=== PATIENT | male | born 1970 | race Caucasian/White ===

== ENCOUNTER 2019-02-08 11:20 | Emergency (ER) | payer OTHER ==
--- NOTE | 2019-02-08 11:37 | ER Document Report ---
ED Medical Screen (RME) - General Chief Complaint: Testicular Pain Stated Complaint: TESTICULAR PAIN Time Seen by Provider: 02/08/19 11:35 Mode of Arrival: Ambulatory Information source: Patient Notes: Patient presents complaining of right testicular pain that radiates to right groin and right lower back area. Patient states pain started 2 days ago and woke him up at night. Patient saw his primary doctor who advised him to come here with concerns about possible torsion versus hernia, versus kidney stone. Patient denies any urinary symptoms vomiting or fever. I have greeted and performed a rapid initial assessment of this patient. A comprehensive ED assessment and evaluation of the patient, analysis of test results and completion of the medical decision making process will be conducted by additional ED providers. - Related Data Allergies/Adverse Reactions: No Known Allergies Allergy (Verified 02/08/19 11:21) Physical Exam - Vital signs Vitals: Temp Pulse Resp BP Pulse Ox 98.8 F 91 15 134/92 H 99 02/08/19 11:26 02/08/19 11:26 02/08/19 11:02/08/19 11:02/08/19 11:26 - Genitourinary Tenderness: Testicle tender - Right testicular tenderness Scrotum: Redness Notes: GILL Cagle as standby Course - Vital Signs Vital signs: Temp Pulse Resp BP Pulse Ox 98.8 F 91 15 134/92 H 99 02/08/19 11:26 02/08/19 11:26 02/08/19 11:26 02/08/19 11:26 02/08/19 11:26
[2019-02-08 12:05] LABS: ABSOLUTE LYMPHOCYTES (AUTO) 1.9 10^3/uL (0.5-4.7); ABSOLUTE MONOCYTES (AUTO) 0.9 10^3/uL (0.1-1.4); ABSOLUTE NEUT (AUTO) 7.6 10^3/uL (1.7-8.2); BASOPHILS % (AUTO) 0.3 % (0-2); EOSINOPHILS % (AUTO) 0.1 % (0-6); HEMATOCRIT 40.9 % (37.9-51.0); HEMOGLOBIN 13.9 g/dL (13.5-17.0); LYMPHOCYTES % (AUTO) 18.3 % (13-45); MEAN CORPUSCULAR HEMOGLOBIN 32.2 pg (27.0-33.4); MEAN CORPUSCULAR VOLUME 95 fl (80-97); MONOCYTES % (AUTO) 8.4 % (3-13); PLATELET COUNT 190 10^3/uL (150-450); RED BLOOD COUNT 4.32 10^6/uL (4.35-5.55); RED CELL DISTRIBUTION WIDTH 14.1 % (11.5-14.0); SEGMENTED NEUTROPHILS % (AUTO) 72.9 % (42-78); TOTAL CELLS COUNTED % (AUTO) 100 %; WHITE BLOOD COUNT 10.4 10^3/uL (4.0-10.5)
[2019-02-08 12:07] LABS: APPEARANCE,URINE CLEAR; BILIRUBIN,URINE NEGATIVE (NEGATIVE); COLOR,URINE YELLOW; GLUCOSE, URINE NEGATIVE (NEGATIVE); KETONES,URINE TRACE mg/dL (NEGATIVE); LEUKOCYTE ESTERASE,URINE NEGATIVE (NEGATIVE); NITRITE,URINE NEGATIVE (NEGATIVE); PROTEIN,URINE NEGATIVE (NEGATIVE); URINE SPECIFIC GRAVITY 1.003; UROBILINOGEN,URINE NEGATIVE mg/dL (<2.0)
[2019-02-08 12:20] LABS: ALANINE AMINOTRANSFERASE 31 U/L (21-72); ALBUMIN 4.7 g/dL (3.5-5.0); ALKALINE PHOSPHATASE 39 U/L (38-126); ANION GAP 13 (5-19); ASPARTATE AMINO TRANSFERASE 29 U/L (17-59); BILIRUBIN,DIRECT 0.3 mg/dL (0.0-0.4); BILIRUBIN,TOTAL 1.4 mg/dL (0.2-1.3); BLOOD UREA NITROGEN 4 mg/dL (7-20); CALCIUM 9.9 mg/dL (8.4-10.2); CARBON DIOXIDE 27 mmol/L (22-30); CHLORIDE 96 mmol/L (98-107); GLUCOSE 98 mg/dL (75-110); POTASSIUM 4.3 mmol/L (3.6-5.0); SODIUM 135.7 mmol/L (137-145); TOTAL PROTEIN 7.9 g/dL (6.3-8.2)
--- NOTE | 2019-02-08 13:09 | ER Document Report ---
Addendum entered and electronically signed by LILLI PRESCOTT NP 02/08/19 15:01: Discharge - Discharge Clinical Impression: Epididymitis Condition: Stable Disposition: HOME, SELF-CARE Instructions: Anti-Inflammatory Medication ([facility]), Epididymitis ([facility]) Additional Instructions: Take medication as prescribed. Drink plenty fluids. Ice to sore area. Follow- up with neurology if not better in the next 3 to 5 days, sooner for worsening pain, fever, numbness, tingling, weakness, persistent vomiting, or for any further concerns. Prescriptions: Ciprofloxacin HCl [Cipro 500 mg Tablet] 500 mg PO BID #20 tablet Naproxen [Naprosyn] 500 mg PO BID #20 tablet Referrals: KOLTON BORREGO PA [Primary Care Provider] - Follow up as needed APARNA SHRESTHA MD [NO LOCAL MD] - Follow up as needed Original Note: ED GI/ - General Chief Complaint: Testicular Pain Stated Complaint: TESTICULAR PAIN Time Seen by Provider: 02/08/19 11:35 Mode of Arrival: Ambulatory Information source: Patient - HPI Patient complains to provider of: Testicular pain Notes: 02/08/19 13:07 Patient here with complaints of right testicular pain. Pain started 2 nights ago. Pain has been constant, progressively getting worse. Pain is moderate to severe. Pain is worse with touching and walking, better with rest. He does report some swelling. He was seen by his primary care doctor and sent to the ER for evaluation. He denies any fevers. No nausea, vomiting, diarrhea. He states the pain does radiate abdomen/low back. He denies any dysuria or hematuria. He denies any penile discharge. He is sexually active, but has not been sexually active in over 6 months. He denies any injury to the area. No significant heavy lifting. No chest pain or shortness of breath. No rash. He denies any other specific complaints at this time. - Related Data Allergies/Adverse Reactions: No Known Allergies Allergy (Verified 02/08/19 11:21) Past Medical History - General Information source: Patient - Social History Smoking Status: Current Every Day Smoker Chew tobacco use (# tins/day): No Frequency of alcohol use: Heavy Drug Abuse: None Family History: Reviewed & Not Pertinent Patient has suicidal ideation: No Patient has homicidal ideation: No Renal/ Medical History: Denies: Hx Peritoneal Dialysis Review of Systems - Review of Systems -: Yes All other systems reviewed and negative Physical Exam - Vital signs Vitals: Temp Pulse Resp BP Pulse Ox 98.8 F 91 15 134/92 H 99 02/08/19 11:02/08/19 11:02/08/19 11:02/08/19 11:02/08/19 11:26 - Notes Notes: GENERAL: alert, cooperative, nontoxic, no distress. HEAD: normocephalic, atraumatic EYES: conjunctiva pink without discharge, no external redness or swelling. EARS: no external swelling, no external redness NOSE: atraumatic, no external swelling MOUTH/THROAT: mucous membranes moist and pink, posterior pharynx without erythema, swelling, exudate. No trismus or drooling. NECK: soft, supple, full range of motion, no meningismus. CHEST: no distress, lungs clear and equal throughout. No wheezing, rales, rhonchi. CARDIAC: regular rate and rhythm, no murmur, normal capillary refill, normal pulses. No peripheral edema noted. ABDOMEN: Soft, nontender. No rebound tenderness or guarding. No mass. No hernia. : Circumcised penis. No penile discharge or rash. Right testicular with normal testicular lie. There is some swelling possible mass along the epididymis with tenderness to palpation of the right testicle. Scrotal skin shows no rash or crepitus. No obvious hernia. BACK: full range of motion, no CVA tenderness. EXTREMITIES: full range of motion of all extremities. No redness, no swelling. NEURO: alert and oriented x 3, no focal deficits, full range of motion of all extremities. PYSCH: appropriate mood, affect. Patient is cooperative. SKIN: pink, warm, dry, no rash. Course - Re-evaluation Re-evalutation: 02/08/19 14:56 Patient is nontoxic-appearing with stable vitals. Patient with complaints of right testicular pain for the last 2 days. He is noted to have some mild swelling and tenderness along the epididymis. Scrotal skin is normal. White counts normal. Urinalysis is normal. GC chlamydia cultures negative. He has not been sexually active for over 6 months. Ultrasound shows no torsion with signs of right-sided epididymitis. Patient will be given a prescription for Cipro and naproxen with a referral to urology. Instructions to follow-up with urology if not improving the next 3 to 5 days, sooner for worsening pain, fever, severe abdominal pain, persistent vomiting, or for any further concerns. - Vital Signs Vital signs: Temp Pulse Resp BP Pulse Ox 98.8 F 91 15 134/92 H 99 02/08/19 11:26 02/08/19 11:26 02/08/19 11:26 02/08/19 11:26 02/08/19 11:26 - Laboratory Result Diagrams: 02/08/19 11:45 02/08/19 11:45 Laboratory results interpreted by me: 02/08/19 02/08/19 02/08/19 11:40 11:45 11:45 RBC 4.32 L RDW 14.1 H Sodium 135.7 L Chloride 96 L BUN 4 L Total Bilirubin 1.4 H Urine Ketones TRACE H - Diagnostic Test Radiology reviewed: Image reviewed, Reports reviewed - Scrotal ultrasound shows right sided epididymitis, no torsion. Discharge - Discharge Clinical Impression: Epididymitis Condition: Stable Disposition: HOME, SELF-CARE Instructions: Anti-Inflammatory Medication ([facility]), Epididymitis ([facility]) Additional Instructions: Take medication as prescribed. Drink plenty fluids. Ice to sore area. Follow- up with neurology if not better in the next 3 to 5 days, sooner for worsening pain, fever, numbness, tingling, weakness, persistent vomiting, or for any further concerns. Prescriptions: RX: Ciprofloxacin HCl [Cipro 500 mg Tablet] 500 mg PO BID #20 tablet Naproxen [Naprosyn] 500 mg PO BID #20 tablet
[2019-02-08 13:27] LABS: CHLAM PCR NOT DETECTED (NOT DETECT); GON PCR NOT DETECTED (NOT DETECT)
--- NOTE | 2019-02-08 14:36 | RADIOLOGY REPORT (SQ) ---
EXAM DESCRIPTION: U/S SCROTUM W/DOPPLER COMPLETED DATE/TIME: 02/08/2019 2:03 pm REASON FOR STUDY: r scrotal pain COMPARISON: None. TECHNIQUE: Grayscale imaging of the scrotum and testes. Selected color Doppler and spectral images recorded to document blood flow. LIMITATIONS: None. FINDINGS: RIGHT: TESTICLE: Measures 3.7 x 3.3 x 2.5 cm. Normal echotexture. Normal blood flow. No mass. EPIDIDYMIS: The epididymal head measures 1.1 x 1.0 x 0.8 cm. There is heterogeneous appearance of th e epididymal tail with mild increased vascularity, this corresponds to the area of patient's pain. HYDROCELE OR VARICOCELE: No. HERNIA OR EXTRA-TESTICULAR MASS: No. LEFT: TESTICLE: Measures 4.1 x 2.8 x 2.7 cm. Normal echotexture. Normal blood flow. No mass. EPIDIDYMIS: The epididymal head measures 0.7 x 1.0 x 0.7 cm. HYDROCELE OR VARICOCELE: No. HERNIA OR EXTRA-TESTICULAR MASS: No. IMPRESSION: Heterogeneous appearance of the right epididymal tail with mild increased vascularity, c orresponding to the area of patient's pain, suggestive of acute epididymitis. TECHNICAL DOCUMENTATION: JOB ID: [id number] [email or web address]- All Rights Reserved Reading location - IP/workstation name: [email or web address]
[2019-02-08 15:07] VITALS: BP 146/99
== END 2019-02-08 15:19 | disposition home or self-care (01) ==
LOC: ER 11:20
DX: N45.1 Epididymitis (principal); N50.811 Right testicular pain; F17.200 Nicotine dependence, unspecified, uncomplicated
CPT/HCPCS: 36415; 76870; 80053; 81001; 85025; 87491; 87591; 93976; 99284